=== PATIENT | male | born 1960 | race Caucasian/White ===

== ENCOUNTER → 2016-07-28 | Outpatient (CLI) | payer BC ==
[2016-07-28 10:33] LABS: ALBUMIN 4.1 GM/DL (3.2-5.2); ALBUMIN/GLOBULIN RATIO 1.32 (1.00-1.93); ALKALINE PHOSPHATASE 99 U/L (45-117); ALT/SGPT 33 U/L (12-78); ANION GAP 7 MEQ/L (8-16); AST/SGOT 13 U/L (15-37); BILIRUBIN,TOTAL 0.7 MG/DL (0.2-1.0); BLOOD UREA NITROGEN 15 MG/DL (7-18); CALCIUM LEVEL 8.9 MG/DL (8.5-10.1); CARBON DIOXIDE LEVEL 29 MEQ/L (21-32); CHLORIDE LEVEL 106 MEQ/L (98-107); CHOLESTEROL LEVEL 168 MG/DL (<200); CREATININE FOR GFR 1.17 MG/DL (0.70-1.30); GLOMERULAR FILTRATION RATE > 60.0 (>56); GLUCOSE, FASTING 188 MG/DL (70-105); POTASSIUM SERUM 4.5 MEQ/L (3.5-5.1); SODIUM LEVEL 142 MEQ/L (136-145); TOTAL PROTEIN 7.2 GM/DL (6.4-8.2); TRIGLYCERIDES LEVEL 256 MG/DL (<150)
[2016-07-28 13:51] LABS: MEAN CORPUSCULAR HGB CONC 34.2 g/dl (32.0-36.5); MEAN CORPUSCULAR VOLUME 87.8 fl (80.0-96.0); RED CELL DISTRIBUTION WIDTH 13.6 % (11.5-14.5); WHITE BLOOD COUNT 5.5 K/mm3 (4.0-10.0)
== END | disposition home or self-care (01) ==
LOC: M WUC 08:29
PROVIDERS: ATTEND Physician Assistant
DX: D72.819 Decreased white blood cell count, unspecified (principal); E11.65 Type 2 diabetes mellitus with hyperglycemia; E55.9 Vitamin D deficiency, unspecified; E78.5 Hyperlipidemia, unspecified

== ENCOUNTER 2016-08-01 15:15 | Outpatient (RCR) | payer BC | END 2016-08-02 | LOC: M PT 15:15 | PROVIDERS: ATTEND Physician Assistant | DX: Z51.89 Encounter for other specified aftercare (principal); M47.816 Spondylosis without myelopathy or radiculopathy, lumbar region ==

== ENCOUNTER → 2016-08-03 | Outpatient (CLI) | payer BC ==
--- NOTE | 2016-08-03 15:01 | REP ---
MRI LUMBAR SPINE WITHOUT CONTRAST: 08/03/2016. Clinical history: Back pain with left leg radiculopathy. Technique: Sagittal T1, T2 and STIR images with axial T1-T2 sequences. Findings: No comparison study. Sagittal images show slight loss of lordosis. The vertebral body heights from T12-S3 were intact. Marrow signal is normal at all of these levels. Disc space height and disc water signal from T11-12 through L4-5 was maintained. There is disc space narrowing and disc desiccation, mild at L5-S1. Conus terminates at the L1-2 level. At T12-L1, L1-2, L2-3, L3-4 disc levels there is no disc bulge or herniation and no spinal or foraminal stenosis. Only minimal hypertrophic facet change in the L2-3 and L3-4 levels. At L4-5 mild disc bulge, broad-based and flattening ventral thecal sac, but no cross-sectional stenosis of the canal centrally. There is some ligamentum and facet hypertrophy. The foramina are adequate bilaterally. At L5-S1 there is a broad-based disc bulge with central and left paracentral disc protrusion. This extends into the foramen. It displaces the left S1 nerve root but not the right. Cross-sectional area of the canal was adequate. The foramina do not show nerve root compression on either side although there is loss of perineural fat on the left. Impression: 1. A left paracentral disc protrusion with broad-based disc bulge at L5-S1 displacing the left S1 nerve root and narrowing the left foramen but not compressing the L5 root. The right foramen is adequate. 2. Minimal degenerative disc changes at L4-5 without spinal or foraminal stenosis at any of the levels above. Signed by Edward Tay MD 08/03/2016 04:46 P
== END | disposition home or self-care (01) ==
LOC: M RAD 12:00
PROVIDERS: ATTEND Physician Assistant
DX: M47.26 Other spondylosis with radiculopathy, lumbar region (principal)

== ENCOUNTER → 2016-12-02 | Outpatient (CLI) | payer BC ==
[2016-12-02 13:21] LABS: ALBUMIN 3.8 GM/DL (3.2-5.2); ALBUMIN/GLOBULIN RATIO 1.27 (1.00-1.93); ALKALINE PHOSPHATASE 115 U/L (45-117); ALT/SGPT 28 U/L (12-78); ANION GAP 8 MEQ/L (8-16); AST/SGOT 10 U/L (15-37); BILIRUBIN,TOTAL 0.6 MG/DL (0.2-1.0); BLOOD UREA NITROGEN 15 MG/DL (7-18); CALCIUM LEVEL 8.7 MG/DL (8.5-10.1); CARBON DIOXIDE LEVEL 28 MEQ/L (21-32); CHLORIDE LEVEL 101 MEQ/L (98-107); CHOLESTEROL LEVEL 263 MG/DL (<200); CREATININE FOR GFR 1.08 MG/DL (0.70-1.30); GLOMERULAR FILTRATION RATE > 60.0 (>56); GLUCOSE, FASTING 281 MG/DL (70-105); POTASSIUM SERUM 4.2 MEQ/L (3.5-5.1); SODIUM LEVEL 137 MEQ/L (136-145); TOTAL PROTEIN 6.8 GM/DL (6.4-8.2); TRIGLYCERIDES LEVEL 479 MG/DL (<150)
== END ==
LOC: M WUC 08:56
PROVIDERS: ATTEND Physician Assistant
DX: E11.65 Type 2 diabetes mellitus with hyperglycemia (principal); E78.5 Hyperlipidemia, unspecified

== ENCOUNTER → 2020-12-10 | Outpatient (CLI) | payer BC ==
--- NOTE | 2020-12-10 10:29 | REP ---
INDICATION: PAIN IN LEFT KNEE SUNRISE PATELLA LEFT KNEE. COMPARISON: None. TECHNIQUE: AP supine and weight-bearing views of the bilateral knees. FINDINGS: Moderate degenerative changes include periarticular sclerosis and subtle spurring along with possible small amounts of chondrocalcinosis. Weightbearing views demonstrate element of decreased joint space bilaterally. IMPRESSION: Moderate degenerative changes with suggestions for decreased joint space on weight-bearing view. <Electronically signed by Morris Kern > 12/10/20 [id number]
== END ==
LOC: M SOG 09:04
PROVIDERS: ATTEND Orthopaedic Surgery Adult Reconstructive Orthopaedic Surgery
DX: M25.562 Pain in left knee (principal); M17.12 Unilateral primary osteoarthritis, left knee

== ENCOUNTER → 2022-05-17 | Outpatient (CLI) | payer BC | LOC: M SOG 13:03 | PROVIDERS: ATTEND Orthopaedic Surgery | DX: M54.32 Sciatica, left side (principal) ==

== ENCOUNTER → 2022-08-18 | Outpatient (CLI) | payer BC | LOC: M SOG 11:47 | PROVIDERS: ATTEND Orthopaedic Surgery Adult Reconstructive Orthopaedic Surgery | DX: M23.204 Derangement of unspecified medial meniscus due to old tear or injury, left knee (principal) ==

== ENCOUNTER → 2022-11-25 | Outpatient (CLI) | payer BC | LOC: M PLARAD 14:03 | PROVIDERS: ATTEND Orthopaedic Surgery | DX: M23.204 Derangement of unspecified medial meniscus due to old tear or injury, left knee (principal) ==

== ENCOUNTER 2023-06-29 10:35 | Day surgery (SDC) | payer BC ==
[~2023-06-29] VITALS: Ht 175.3 cm; Wt 86.5 kg
[~2023-06-29 10:35] MED LIST: CLON-412 PO; DULA3PEN SC; FARX1TAB3 PO; GABA-282 PO; GLIP5TAB17 PO; LANTINJ4 SC; LISI2.5T9 PO; METO1TAB32 PO; NAPR220C14 PO; NITR0.4S14 PO; OMEG1CAP85 PO; PANT40TA29 PO; PIOG1TAB36 PO; PROC10TA5 PO; ROSU20TA61 PO
[2023-06-29] MEDS ORDERED: LR 1,000 ML IV SCH ×3 (11:30→16:20)
[2023-06-29] MEDS ORDERED: GLUCOSE 4GM CHEW TABLET PO PRN (11:30)
[2023-06-29] MEDS ORDERED: DEXTROSE 50% 50ML SYRINGE IV PRN (11:30)
[2023-06-29] MEDS ORDERED: GLUCAGON INJ 1MG VIAL SC PRN (11:30)
[2023-06-29] MEDS ORDERED: INSULIN LISPRO (NovoLOG) PER UNIT SC PRN (11:30)
[2023-06-29 11:35] LABS: HEMATOCRIT 46.7 % (42.0-52.0); HEMOGLOBIN 15.1 g/dl (13.5-17.5); MEAN CORPUSCULAR HEMOGLOBIN 29.4 pg (27.0-33.0); MEAN CORPUSCULAR HGB CONC 32.3 g/dl (32.0-36.5); PLATELET COUNT, AUTOMATED 213 10^3/uL (150-450); RED BLOOD COUNT 5.13 10^6/uL (4.30-6.10); WHITE BLOOD COUNT 4.6 10^3/uL (4.0-10.0)
[2023-06-29 11:53] LABS: BLOOD UREA NITROGEN 15 MG/DL (9-23); CALCIUM LEVEL 9.2 MG/DL (8.3-10.6); CARBON DIOXIDE LEVEL 30 MMOL/L (20-31); CHLORIDE LEVEL 109 MMOL/L (98-107); CREATININE FOR GFR 0.91 MG/DL (0.70-1.30); GLOMERULAR FILTRATION RATE > 60.0 (>49); GLUCOSE, FASTING 147 MG/DL (74-106); SODIUM LEVEL 143 MMOL/L (136-145)
[2023-06-29] MEDS ORDERED: LIDOCAINE W/EPINEPHRINE 1% 20ML VIAL As Ordered ONE (12:17)
[2023-06-29] MEDS ORDERED: ROCURONIUM BROMIDE 50MG/5ML VIAL As Ordered ONE ×2 (12:45→13:31)
[2023-06-29] MEDS ORDERED: SUGAMMADEX SODIUM 500 MG/5 ML VIAL (BRIDION) As Ordered ONE (12:45)
[2023-06-29] MEDS ORDERED: fentaNYL 100 MCG/2 ML INJECTION As Ordered ONE (12:45)
[2023-06-29] MEDS ORDERED: LIDOCAINE 2% 100MG/5ML SDV (FOR ANES.) As Ordered ONE (12:45)
[2023-06-29] MEDS ORDERED: propofoL 200 MG/20 ML VIAL As Ordered ONE (12:45)
[2023-06-29] MEDS ORDERED: MIDAZOLAM INJ 2MG/2ML VIAL As Ordered ONE (12:45)
[2023-06-29] MEDS ORDERED: ONDANSETRON 4MG 2ML VIAL As Ordered ONE (12:45)
[2023-06-29] MEDS ORDERED: PHENYLephrine 500MCG 5ML (100MCG/ML) SYRINGE As Ordered ONE (13:08)
[2023-06-29] MEDS ORDERED: KETOROLAC 60MG 2ML VIAL As Ordered ONE (13:09)
[2023-06-29] MEDS ORDERED: METOCLOPRAMIDE INJ 10MG/2ML VIAL IV PRN (13:50)
[2023-06-29] MEDS ORDERED: ONDANSETRON 4MG 2ML VIAL IV PRN (13:50)
[2023-06-29] MEDS ORDERED: fentaNYL 100 MCG/2 ML INJECTION IV PRN (13:50)
[2023-06-29] MEDS ORDERED: oxyCODONE 5MG TAB PO PRN (13:50)
[2023-06-29] MEDS ORDERED: HYDROMORPHONE HCL 0.5 MG/ 0.5 ML SYRINGE IV PRN (13:50)
[2023-06-29 15:03] VITALS: BP 145/78; TEMP 97.8; O2SAT 92
[2023-06-29] MEDS ORDERED: HYDROcodone/APAP LIQUID 7.5-325MG 15ML UDC (LORTAB ELIXIR) PO PRN (16:20)
== END 2023-06-29 15:40 | disposition home or self-care (01) ==
LOC: M SDC 10:35
PROVIDERS: ATTEND Otolaryngology
DX: K13.6 Irritative hyperplasia of oral mucosa (principal); K14.0 Glossitis; E11.9 Type 2 diabetes mellitus without complications; I25.2 Old myocardial infarction; Z95.5 Presence of coronary angioplasty implant and graft; I10 Essential (primary) hypertension; E78.00 Pure hypercholesterolemia, unspecified; K21.9 Gastro-esophageal reflux disease without esophagitis; Z79.899 Other long term (current) drug therapy; Z79.1 Long term (current) use of non-steroidal anti-inflammatories (NSAID); Z79.4 Long term (current) use of insulin; Z79.85 Long-term (current) use of injectable non-insulin antidiabetic drugs
CPT/HCPCS: 36415; 41105; 80048; 85027; 88305; J1100; J1885; J2250; J2371; J2405; J3010